=== PATIENT | female | born 1980 | race Caucasian/White ===

== ENCOUNTER → 2024-11-03 | Outpatient (CLI) | payer OTHER, MEDICAID, SELFPAY ==
--- NOTE | 2024-11-03 08:38 | XR_ITS ---
Examination: Arterial duplex lower extremity study. Date and time of exam: November 03, 2024 0851 hours INDICATIONS: Right foot calf and ankle pain beginning 6 weeks ago Findings: Duplex sonographic imaging of the lower extremity arteries using B-mode/Gilbert scale imaging and Doppler spectral analysis and color flow. Ankle brachial indices have been recorded. Right common femoral artery demonstrates triphasic flow. Right superficial femoral artery demonstrates triphasic flow. Right popliteal artery demonstrates triphasic flow. Right posterior tibial artery demonstrated triphasic flow. Right ankle/brachial index is 1.0. Left common femoral artery demonstrates triphasic flow. Left superficial femoral artery demonstrates triphasic flow. Left popliteal artery demonstrates triphasic flow. Left posterior tibial artery demonstrated triphasic flow. Left ankle/brachial index is 1.1. Impression: Negative study
== END | disposition home or self-care (01) ==
PROVIDERS: PCP Nurse Practitioner Family; Referring Provider Nurse Practitioner Family; Visit Provider Nurse Practitioner Family
DX: M25.572 Pain in left ankle and joints of left foot (principal); M25.571 Pain in right ankle and joints of right foot
CPT/HCPCS: 93922

== ENCOUNTER → 2025-01-14 | Outpatient (CLI) | payer OTHER, MEDICAID, SELFPAY ==
--- NOTE | 2025-01-14 09:28 | XR_ITS ---
Examination: Esophagram standard Fluoroscopy Upright PA chest single view Upright soft tissue lateral neck single view 22 spot fluoroscopic films of the esophagus Exam date and time: January 14, 2025 0933 hours INDICATIONS: Difficulty swallowing 3 months. FINDINGS: Upright PA chest demonstrates normal heart size no pneumonia or pulmonary edema Soft tissue lateral neck demonstrates normal epiglottis Patient swallowed thin barium with 22 spot fluoroscopic films of the esophagus Primary peristaltic esophageal waves No constricting esophageal lesion Large esophageal hernia Moderate continuous gastroesophageal reflux No esophageal ulcerations IMPRESSION: Large esophageal hernia Moderate continuous gastroesophageal reflux No stricture the gastroesophageal junction
== END | disposition home or self-care (01) ==
PROVIDERS: PCP Nurse Practitioner Family; Referring Provider Nurse Practitioner Family; Visit Provider Nurse Practitioner Family
DX: K44.9 Diaphragmatic hernia without obstruction or gangrene (principal); K21.9 Gastro-esophageal reflux disease without esophagitis
CPT/HCPCS: 74220; A4699

== ENCOUNTER → 2025-02-08 | Outpatient (CLI) | payer OTHER, MEDICAID, SELFPAY ==
--- NOTE | 2025-02-08 10:30 | XR_ITS ---
Examination: Screening digital mammography, bilateral Computer aided detection 3-D breast Tomosynthesis, bilateral Date and time of exam: February 08, 2025 0953 hours Compared to mammograms dating to December 29, 2019 Indication: Screening Technique: Nonmagnified MLO, CC views of the breasts to been obtained, reconstructed from 3-D Tomosynthesis images. R2 computer aided detection program utilized for evaluation of suspicious masses and/or abnormal calcifications. 3-D Tomosynthesis images obtained. Findings: Scattered areas of fibroglandular density. Benign calcifications. No interval suspicious masses Impression: BI-RADS category II: Benign Findings. Recommend 1 year follow-up mammogram.
== END | disposition home or self-care (01) ==
LOC: CDIM 09:32
PROVIDERS: Referring Provider Nurse Practitioner Family; Visit Provider Nurse Practitioner Family
DX: Z12.31 Encounter for screening mammogram for malignant neoplasm of breast (principal); R92.323 Mammographic fibroglandular density, bilateral breasts; R92.1 Mammographic calcification found on diagnostic imaging of breast
CPT/HCPCS: 77063; 77067

== ENCOUNTER → 2025-02-25 | Outpatient (CLI) | payer OTHER, MEDICAID, SELFPAY ==
[2025-02-25 09:41] LABS: Basophils % (Auto) 0 % (0-2.5); Eosinophils # (Auto) 0.1 Thou/mm3 (0.0-0.5); Eosinophils % (Auto) 1 % (0-10); Hematocrit 36.4 % (36.0-46.0); Hemoglobin 12.2 g/dL (12.0-16.0); Immature Granulocytes % (Auto) 0 % (0-0); Immature Granulocytes Auto 0.03 Thou/mm3 (0.00-0.00); Lymphocytes # (Auto) 2.6 Thou/mm3 (1.0-4.8); Lymphocytes % (Auto) 29 % (10-50); Mean Corpuscular HGB Conc 33.5 g/dl (31.0-37.0); Mean Corpuscular Hemoglobin 31.9 pg (25.0-35.0); Mean Corpuscular Volume 95 fL (80-100); Monocytes # (Auto) 0.7 Thou/mm3 (0.0-0.8); Monocytes % (Auto) 8 % (0-12); Neutrophils # (Auto) 5.7 Thou/mm3 (1.8-7.7); Neutrophils % (Auto) 62 % (37-80); Nucleated Red Blood Cell % 0 /100 WBC (0); Platelet Count 188 Thou/mm3 (140-440); RDW Standard Deviation 46.9 fL (36.4-46.3); Red Blood Count 3.83 Miln/mm3 (4.00-5.20); White Blood Count 9.2 Thou/mm3 (3.6-11.0)
[2025-02-25 09:52] LABS: Glucose Estimated Average 97 mg/dL (80-131)
[2025-02-25 09:58] LABS: Collection Type, Urine Clean Catch
[2025-02-25 10:04] LABS: Alanine Aminotransferase 13 U/L (10-49); Albumin, Serum 3.5 gm/dL (3.5-5.0); Albumin/Globulin Ratio 1.9 (1.2-2.2); Alkaline Phosphatase 45 U/L (46-116); Anion Gap 6 (7-16); Aspartate Amino Transferase 15 U/L (0-34); BUN/Creatinine Ratio 16 Ratio (12-20); Bilirubin,Total 0.6 mg/dL (0.3-1.2); Blood Urea Nitrogen 16 mg/dL (9-23); Calcium 8.2 mg/dL (8.3-10.6); Calcium (Corrected) 8.6 mg/dL (8.5-10.1); Carbon Dioxide 32.1 mMol/L (20.0-31.0); Chloride 105 mMol/L (98-107); Cholesterol 149 mg/dL (132-200); Free T4 (Free Thyroxine) 1.08 ng/dL (0.89-1.76); Globulin 1.8 gm/dL (2.3-3.5); Glucose 94 mg/dL (74-106); HDL Cholesterol 50 mg/dL (40-60); LDL Cholesterol,Calculated 72 mg/dL (0-130); Osmolality,Calculated 286 (275-295); Sodium 143 mMol/L (136-145); Thyroid Stimulating Hormone 0.51 uIU/mL (0.55-4.78); Total Protein 5.3 gm/dL (5.7-8.2); Triglycerides 134 mg/dL (30-150); eGFR > 60 See Note
[2025-02-25 10:34] LABS: Bilirubin,Urine Negative (Negative); Blood,Urine Negative (Negative); Clarity,Urine Clear (Clear/Hazy); Color,Urine Lt-Yellow (Lt Yel-Yel); Culture Indicated,Urine Not Indicated; Glucose, Urine Negative (Negative); Ketones,Urine Negative (Negative); Leukocyte Esterase,Urine Negative (Negative); Nitrite,Urine Negative (Negative); Protein,Urine Negative (Neg - Trace); RBC,Urine 2 /hpf (0-3); Specific Gravity,Urine 1.016 (1.001-1.035); Squamous Epithelial Cell,Urine 1 /hpf (0-5); Urobilinogen,Urine Negative mg/dL (0.0-1.0); WBC,Urine 1 /hpf (0-5)
[2025-02-25 10:46] LABS: Creatinine,Random Urine 78 mg/dL (30-125)
== END | disposition home or self-care (01) ==
LOC: COPL 09:02
PROVIDERS: PCP Nurse Practitioner Family; Referring Provider Nurse Practitioner Family; Visit Provider Nurse Practitioner Family
DX: E27.0 Other adrenocortical overactivity (principal); E78.2 Mixed hyperlipidemia; I10 Essential (primary) hypertension; Z79.899 Other long term (current) drug therapy
CPT/HCPCS: 36415; 80053; 80061; 81001; 82570; 83036; 84439; 84443; 85025

== ENCOUNTER 2025-03-26 12:50 | Day surgery (SDC) | payer OTHER, MEDICAID, SELFPAY ==
[2025-03-25 10:28] LABS: HCG Qualitative,Urine Negative
[2025-03-26] VITALS (10 sets, daily range): BP systolic 114–160; BP diastolic 71–98; PULSE 56–69; RESP 13–23; TEMP 36.2–36.8; O2SAT 96–100; BMI 29.2
[2025-03-26] MEDS: BENZOCAINE 20% (Hurricaine) SPRAY 1 DOSE TOP (13:12)
[2025-03-26] MEDS: SODIUM CHLORIDE 0.9% 500 ML 500 ML 20 ML IV (14:12)
[2025-03-26] MEDS: fentaNYL CIT INJ 50 mCg/ML AMP 2ML (ASD USE ONLY) IVP (14:18)
[2025-03-26] MEDS: DiphenhydrAMINE INJ 50 MG/ML VIAL 25 MG IVP (14:18)
[2025-03-26] MEDS: MIDAZOLAM INJ 1 MG/ML VIAL 2 ML (ASD USE ONLY) 2 MG IVP (14:18)
--- NOTE | 2025-03-26 15:27 | SUR.PHASEII ---
1503 Pt awake and alert. Denies pain, N/V or difficulty swallowing. Abd remains soft. Jesús PO fluids.
--- NOTE | 2025-03-26 15:34 | SUR.PHASEII ---
1519 Pt assessment unchanged. No complaints. Amb with steady gait. Able to dress self. Pt and father given dc instructions. Both state understanding. Pt meets dc criteria-to home.
== END 2025-03-26 15:19 | disposition home or self-care (01) ==
PROVIDERS: PCP Nurse Practitioner Family; Referring Provider Specialist; Visit Provider Specialist
PROC: (CPT 43239; principal; 2025-03-26 13:15)
DX: K22.2 Esophageal obstruction (principal); K20.90 Esophagitis, unspecified without bleeding; Z98.0 Intestinal bypass and anastomosis status; K29.50 Unspecified chronic gastritis without bleeding; K31.89 Other diseases of stomach and duodenum
CPT/HCPCS: 43248; 43239; 81025; C1769; J1200; J2250; J3010; J7999; A9270

== ENCOUNTER 2025-05-21 10:00 | Day surgery (SDC) | payer OTHER, MEDICAID, SELFPAY ==
[2025-05-20 11:02] LABS: HCG Qualitative,Urine Negative
[2025-05-20 13:59] VITALS: BMI 45.3
[2025-05-21] VITALS (10 sets, daily range): BP systolic 104–128; BP diastolic 63–89; PULSE 60–69; RESP 16–19; TEMP 36.4–36.7; O2SAT 98–100; BMI 43.3
[2025-05-21] MEDS: SODIUM CHLORIDE 0.9% 500 ML 500 ML 20 ML IV (12:12)
[2025-05-21] MEDS: MIDAZOLAM INJ 1 MG/ML VIAL 2 ML (ASD USE ONLY) 2 MG IVP (12:15)
[2025-05-21] MEDS: fentaNYL CIT INJ 50 mCg/ML AMP 2ML (ASD USE ONLY) IVP (12:20)
== END 2025-05-21 13:00 | disposition home or self-care (01) ==
PROVIDERS: PCP Nurse Practitioner Family; Referring Provider Specialist; Visit Provider Specialist
PROC: 0DBE8ZX Excision of Large Intestine, Via Natural or Artificial Opening Endoscopic, Diagnostic (ICD-10-PCS; CPT 45380; principal; 2025-05-21 10:00)
DX: Z12.11 Encounter for screening for malignant neoplasm of colon (principal); K29.70 Gastritis, unspecified, without bleeding; I10 Essential (primary) hypertension; Z79.899 Other long term (current) drug therapy; K64.9 Unspecified hemorrhoids
CPT/HCPCS: G0121; 81025; A4649; J1200; J2250; J3010; J7999